=== PATIENT | female | born 1960 | race Caucasian/White ===

== ENCOUNTER 2020-09-15 20:20 | Emergency (ER) | payer MEDICAID ==
[~2020-09-15] VITALS: Ht 165.1 cm; Wt 83.6 kg
[2020-09-15] MEDS ORDERED: amlodipine PO (20:51)
--- NOTE | 2020-09-15 20:54 | NUR ---
Pt came from home chief complaint n/v since this morning.
[2020-09-15] MEDS ORDERED: IV NS 1000 ML 1,000 ML IV ONE (21:00)
[2020-09-15] MEDS ORDERED: PROCHLORPERAZINE EDISYLATE 10 MG/2 ML VIAL IV ONE (21:00)
[2020-09-15 21:18] LABS: CREATININE 0.6 mg/dL (0.6-1.3); POTASSIUM 3.6 mmol/L (3.5-5.1)
[2020-09-15 21:20] LABS: HEMATOCRIT 36.8 % (31.2-41.9); MEAN CORPUSCULAR HEMOGLOBIN 30.2 uug (24.7-32.8); MEAN CORPUSCULAR VOLUME 89.3 fL (75.5-95.3); PLATELET COUNT (AUTO) 224 K/uL (179-408)
[2020-09-15 21:24] LABS: BILIRUBIN,DIRECT 0.2 mg/dL (0.0-0.2); TOTAL PROTEIN, SERUM 7.2 g/dL (6.4-8.2)
[2020-09-15] MEDS ORDERED: PROCHLORPERAZINE EDISYLATE 10 MG/2 ML VIAL ONE (21:26)
[2020-09-15 21:40] LABS: *BILIRUBIN,URIN NEGATIVE (NEGATIVE); *BLOOD, URINE 1+ (NEGATIVE); *CLARITY,URINE CLEAR (CLEAR); *COLOR,URINE YELLOW (YELLOW); *KETONES,URINE NEGATIVE (NEGATIVE); *UROBILINOGEN,URINE 0.2 E.U./dl (NORMAL); LEUKOCYTE ESTERASE ,URINE NEGATIVE (NEGATIVE); NITRITE, URINE NEGATIVE (NEGATIVE); UGLUCOSE NEGATIVE (NEGATIVE)
[2020-09-15 22:07] LABS: BACTERIA,URINE NONE SEEN /HPF (NONE SEEN); SQUAMOUS EPITHELIAL CELL,UR FEW /HPF (NONE SEEN); WBC,URINE 0-3 /HPF (0-3)
[2020-09-15] MEDS ORDERED: PROC-11 PO (22:29)
[2020-09-15] MEDS ORDERED: PROC25SU3 RC (22:29)
--- NOTE | 2020-09-15 22:58 | NUR ---
IV removed. Catheter intact and site benign. Pressure and 4x4 gauze applied to site. No bleeding noted.
--- NOTE | 2020-09-15 23:00 | NUR ---
Patient discharged to home in stable condition. Written and verbal after care instructions given. Patient verbalizes understanding of instructions. Stressed follow up or return to ER for worsening s/s. Pt. signed dc paperwork but accidentially took paper home with her. All belongings with pt. roxanne.
[2020-09-15 23:11] VITALS: BP 133/72
== END 2020-09-15 23:00 | disposition home or self-care (01) ==
LOC: ER 20:23
DX: K52.9 Noninfective gastroenteritis and colitis, unspecified (principal); E83.51 Hypocalcemia
CPT/HCPCS: 36415; 80048; 80076; 81001; 85025; 96361; 96374; 99284; J0780; A4663; J7030